=== PATIENT | female | born 1990 | race African-American/Black ===

== ENCOUNTER 2022-03-07 10:47 | Emergency (ER) | payer OTHER, SELFPAY ==
[2022-03-07] MEDS ORDERED: Lidocaine 1% w/Epinephrine 1:100K 20 ML VIAL ONE (11:24)
[2022-03-07] MEDS ORDERED: Boostrix 0.5 ML (Tdap) VIAL ONE (12:40)
[2022-03-07 13:17] LABS: SARS-CoV-2 NAA Rapid Test Not Detected (NotDetected)
== END 2022-03-07 14:03 | disposition short-term general hospital (02) ==
LOC: CSHERS 10:47
DX: S62.631B Displaced fracture of distal phalanx of left index finger, initial encounter for open fracture (principal); Z87.891 Personal history of nicotine dependence; Z20.822 Contact with and (suspected) exposure to COVID-19; W45.8XXA Other foreign body or object entering through skin, initial encounter
CPT/HCPCS: 64450; 90471; 90715; U0002